=== PATIENT | male | born 1955 | race Caucasian/White ===

== ENCOUNTER → 2016-12-15 | Outpatient (CLI) | payer BC ==
[~2016-12-15] MED LIST: ASPI1TAB83 PO; CHOL100010 PO; CYAN500S5 PO; OMEG10007 PO; ONDA4TAB10 SL; OXYC1TAB3 PO; PRLSR20 PO; TAMS0.4C38 PO
--- NOTE | 2016-12-15 08:10 | DIAGNOSTIC IMAGING REPORT ---
KUB CLINICAL HISTORY: N20.0 [id number] COMPARISON STUDY: 12/27/2015 FINDINGS: There is no evidence of pathologic bowel dilatation. There are clustered lower pole left renal calcifications, the largest which measures 3 mm. The findings are consistent with renal calculi. Pelvic basin calcifications likely represent phleboliths. Degenerative changes are present within the spine. IMPRESSION: Left-sided nephrolithiasis. Increasing stone burden when compared the prior December 2015 study. Electronically signed by: Emigdio Chi M.D. 12/15/2016 8:08 AM Dictated Date/Time: 12/15/2016 8:07 AM
== END | disposition home or self-care (01) ==
LOC: C.RAD 07:47
PROVIDERS: ATTEND Urology
DX: N20.0 Calculus of kidney (principal)

== ENCOUNTER → 2016-12-28 | Outpatient (CLI) | payer BC ==
--- NOTE | 2017-01-04 12:34 | CODING QUERY MEDICAL NECESSITY ---
CQSUPPORTING DIAGNOSIS NEEDED A supporting diagnosis is required for the test/procedure performed on this patient in order for us to be reimbursed by the patient's insurance. Please provide a supporting diagnosis for the following test/procedure listed below next to the test name along with your signature. *If there is no additional diagnosis for this patient that would support the following test/procedure please document that below next to the test/procedure. Test(s)/Procedure(s) that require a supporting diagnosis: DOS 12/28/16 PROSTATE SPECIFIC TEST Provider Signature: Date: Thank you Katie Osei [employer] ([email or web address]) Information Management Once completed, please kindly fax back to [phone] For questions please call [phone]
== END | disposition home or self-care (01) ==
LOC: C.LAB1850 08:03
PROVIDERS: ATTEND Urology
DX: N20.0 Calculus of kidney (principal); Z11.59 Encounter for screening for other viral diseases; N40.1 Benign prostatic hyperplasia with lower urinary tract symptoms

== ENCOUNTER 2017-01-08 08:34 | Emergency (ER) | payer BC ==
[~2017-01-08] VITALS: Ht 182.9 cm; Wt 123.4 kg
[~2017-01-08 08:34] MED LIST changes: -ONDA4TAB10 SL; -OXYC1TAB3 PO; -TAMS0.4C38 PO
[2017-01-08 08:39] VITALS: TEMP 36.5; Ht 182.9 cm; Wt 123.4 kg
[2017-01-08] MEDS ORDERED: KETOROLAC TROMETHAMINE 30 MG/ML VIAL IV STA (08:52)
[2017-01-08] MEDS ORDERED: SODIUM CHLORIDE 0.9% 1000ML 1,000 ML IV STA (08:52)
[2017-01-08] MEDS ORDERED: MoRPHine SULFATE 10 MG/ML CARP/VIAL IV STA (08:52)
[2017-01-08] MEDS ORDERED: ONDANSETRON INJ 2 MG/ML 2 ML VIAL IV STA (08:52)
[2017-01-08] MEDS ORDERED: TAMSULOSIN HCL 0.4 MG CAP PO ONE (09:00)
[2017-01-08] MEDS ORDERED: MoRPHine SULFATE 2 MG/ML CARP ONE (09:02)
[2017-01-08] MEDS ORDERED: MoRPHine SULFATE 4 MG/ML 1 ML CARP\\VIAL ONE (09:03)
[2017-01-08 09:08] LABS: BASO ABS # 0.04 K/uL (0-0.2); COMPLETE YES; EOS % 2.3 %; HEMATOCRIT 44.8 % (42-52); IG% 0.8 %; LYMPH % 34.6 %; LYMPH ABS # 1.38 K/uL (1.2-3.4); MEAN CELL VOLUME 91.2 fL (80-100); MEAN CORPUSCULAR HEMOGLOBIN 31.8 pg (25-34); MEAN CORPUSCULAR HGB CONC 34.8 g/dl (32-36); MEAN PLATELET VOLUME 9.1 fL (7.4-10.4); MONO % 6.8 %; NEUT % 54.5 %; PLATELET COUNT 145 K/uL (130-400); RED BLOOD COUNT 4.91 M/uL (4.7-6.1); WHITE BLOOD COUNT 3.99 K/uL (4.8-10.8)
[2017-01-08 09:13] LABS: URINE APPEARANCE CLEAR (CLEAR); URINE BILIRUBIN NEG (NEG); URINE COLOR YELLOW; URINE NITRITE NEG (NEG); URINE SPECIFIC GRAVITY 1.022 (1.000-1.030); UROBILINOGEN NEG (NEG); ZZUR CULT IF INDIC CLEAN CATCH YES
[2017-01-08 09:20] LABS: MANUAL MICROSCOPIC REQUIRED? NO; REVIEW REQ? NO
[2017-01-08 09:29] LABS: BUN/CREATININE RATIO 15.1 (10-20); CREATININE 1.1 mg/dl (0.60-1.40); POTASSIUM 3.7 mmol/L (3.5-5.1)
[2017-01-08 09:34] LABS: CALCIUM 9.6 mg/dl (8.5-10.1)
--- NOTE | 2017-01-08 09:49 | DIAGNOSTIC IMAGING REPORT ---
CT SCAN OF THE ABDOMEN AND PELVIS WITHOUT CONTRAST CLINICAL HISTORY: hematuria, right lower quadrant pain COMPARISON STUDY: 11/28/2012 TECHNIQUE: CT scan of the abdomen and pelvis was performed from the lung bases to the proximal femurs. Images are reviewed in the axial, sagittal, and coronal planes. IV contrast was not administered for this examination. CT DOSE: 1066.20 mGycm FINDINGS: Lower chest: There are minor bibasilar atelectatic changes. Liver: There is hepatic steatosis. There is presumed focal fatty sparing adjacent to the gallbladder fossa. Gallbladder: Unremarkable. Spleen: Normal in size and attenuation. Pancreas: Unremarkable. Adrenal glands: Unremarkable. Kidneys: There is a nonobstructing 5 mm lower pole left renal calculus. There is a 2 mm distal right ureteral calculus at the level of the ureterovesical junction with mild secondary obstructive changes. Bowel: There are no transition zones to indicate bowel obstruction. There is colonic diverticulosis. There are no acute peridiverticular inflammatory changes. There is no evidence of acute appendicitis. Peritoneum: There is no intraperitoneal free air or abdominal ascites. There is a small fat-containing left inguinal hernia. Vasculature: The abdominal aorta is normal in course and caliber. Adenopathy: None. Pelvic viscera: The bladder, and pelvic viscera are unremarkable. Skeletal structures: No destructive osseous lesions are seen. IMPRESSION: 1. 2 mm calculus at the level of the right ureterovesical junction with mild secondary obstructive changes 2. Left-sided nephrolithiasis 3. Hepatic steatosis 4. No evidence of bowel obstruction. No evidence of free air. Electronically signed by: Emigdio Chi M.D. 01/08/2017 9:47 AM Dictated Date/Time: 01/08/2017 9:43 AM
[2017-01-08] MEDS ORDERED: TAMS0.4C38 PO (10:16)
[2017-01-08] MEDS ORDERED: OXYC1TAB3 PO (10:16)
[2017-01-08] MEDS ORDERED: ONDA4TAB10 SL (10:16)
--- NOTE | 2017-01-08 10:17 | EMERGENCY ROOM VISIT NOTE ---
History First contact with patient: 08:45 Chief Complaint: ABDOMINAL PAIN Stated Complaint: LOWER ABDOMINAL PAIN Nursing Triage Summary: Triage note: pt reports right lower abd pain since 0600 today. pt reports nausea. pt reports urinary frequency since yesterday. pt reports hx of diverticulitis. History of Present Illness The patient is a 61 year old male who presents to the Emergency Room with complaints of right lower abdominal pain since 6:00 this morning. The patient describes the pain as sharp in nature. He denies any back pain. The patient does admit to nausea but denies any vomiting. The patient denies any change in bowel habits or any hematochezia or melena. The patient does admit to increased urinary frequency since yesterday but denies any dysuria, hematuria or urgency. The patient denies any fever. The patient has a history of kidney stones as well as diverticulitis. The patient has seen Dr. Mayorga in the past for his kidney stones. He has had lithotripsy in the past. Review of Systems 10 system review was performed and was negative unless stated otherwise history of present illness. Past Medical/Surgical History Diverticulitis, kidney stones Social History Smoking Status: Never Smoker Alcohol Use: occasionally Drug Use: none Marital Status: Housing Status: lives with family Occupation Status: employed Current/Historical Medications Scheduled Aspirin (Aspirin), 81 MG PO DAILY Fish Oil ([place]-3), 1 CAP PO QAM Omeprazole (Prilosec), 20 MG PO QAM Allergies Coded Allergies: No Known Allergies (Verified , 01/08/17) Physical Exam Vital Signs Date Time Temp Pulse Resp B/P Pulse Ox O2 Delivery O2 Flow Rate FiO2 01/08/17 09:45 82 17 159/79 97 Room Air 01/08/17 08:39 36.5 95 20 169/90 96 Room Air Physical Exam GENERAL: Obese 61-year-old white male appears uncomfortable secondary to abdominal pain. MENTAL Status: Alert and oriented 3. MOUTH: Mucosa is moist. NECK: Supple, no lymphadenopathy noted. No carotid bruits noted. LUNGS: Clear auscultation without wheezes rales or rhonchi. CARDIAC: Regular rate and rhythm without murmur. Pulses is full and equal throughout. BACK: No CVA tenderness noted. ABDOMEN: Positive bowel sounds all 4 quadrants. Protuberant difficult to evaluate for organomegaly or masses. The patient has point tenderness to palpation in the right lower quadrant but no rebound or rigidity. Positive bowel sounds all 4 quadrants. EXTREMITIES: No cyanosis or edema noted. Medical Decision & Procedures ER Provider Diagnostic Interpretation: CT SCAN OF THE ABDOMEN AND PELVIS WITHOUT CONTRAST CLINICAL HISTORY: hematuria, right lower quadrant pain COMPARISON STUDY: 11/28/2012 TECHNIQUE: CT scan of the abdomen and pelvis was performed from the lung bases to the proximal femurs. Images are reviewed in the axial, sagittal, and coronal planes. IV contrast was not administered for this examination. CT DOSE: 1066.20 mGycm FINDINGS: Lower chest: There are minor bibasilar atelectatic changes. Liver: There is hepatic steatosis. There is presumed focal fatty sparing adjacent to the gallbladder fossa. Gallbladder: Unremarkable. Spleen: Normal in size and attenuation. Pancreas: Unremarkable. Adrenal glands: Unremarkable. Kidneys: There is a nonobstructing 5 mm lower pole left renal calculus. There is a 2 mm distal right ureteral calculus at the level of the ureterovesical junction with mild secondary obstructive changes. Bowel: There are no transition zones to indicate bowel obstruction. There is colonic diverticulosis. There are no acute peridiverticular inflammatory changes. There is no evidence of acute appendicitis. Peritoneum: There is no intraperitoneal free air or abdominal ascites. There is a small fat-containing left inguinal hernia. Vasculature: The abdominal aorta is normal in course and caliber. Adenopathy: None. Pelvic viscera: The bladder, and pelvic viscera are unremarkable. Skeletal structures: No destructive osseous lesions are seen. IMPRESSION: 1. 2 mm calculus at the level of the right ureterovesical junction with mild secondary obstructive changes 2. Left-sided nephrolithiasis 3. Hepatic steatosis 4. No evidence of bowel obstruction. No evidence of free air. Electronically signed by: Emigdio Chi M.D. 01/08/2017 9:47 AM Dictated Date/Time: 01/08/2017 9:43 AM Laboratory Results 01/08/17 08:54 Red Blood Count 4.91, Mean Corpuscular Volume 91.2, Mean Corpuscular Hemoglobin 31.8, Mean Corpuscular Hemoglobin Concent 34.8, Mean Platelet Volume 9.1, Neutrophils (%) (Auto) 54.5, Lymphocytes (%) (Auto) 34.6, Monocytes (%) (Auto) 6.8, Eosinophils (%) (Auto) 2.3, Basophils (%) (Auto) 1.0, Neutrophils # (Auto) 2.18, Lymphocytes # (Auto) 1.38, Monocytes # (Auto) 0.27, Eosinophils # (Auto) 0.09, Basophils # (Auto) 0.04 01/08/17 08:54 Test 01/08/17 08:45 01/08/17 08:54 Urine Color YELLOW Urine Appearance CLEAR (CLEAR) Urine pH 5.0 (4.5-7.5) Urine Specific [place] 1.022 (1.000-1.030) Urine Protein NEG (NEG) Urine Glucose (UA) NEG (NEG) Urine Ketones NEG (NEG) Urine Occult Blood 3+ (NEG) Urine Nitrite NEG (NEG) Urine Bilirubin NEG (NEG) Urine Urobilinogen NEG (NEG) Urine Leukocyte Esterase SMALL (NEG) Urine WBC (Auto) 10-30 /hpf (0-5) Urine RBC (Auto) 10-30 /hpf (0-4) Urine Hyaline Casts (Auto) 1-5 /lpf (0-5) Urine Epithelial Cells (Auto) 10-20 /lpf (0-5) Urine Bacteria (Auto) NEG (NEG) White Blood Count 3.99 K/uL (4.8-10.8) Red Blood Count 4.91 M/uL (4.7-6.1) Hemoglobin 15.6 g/dL (14.0-18.0) Hematocrit 44.8 % (42-52) Mean Corpuscular Volume 91.2 fL (80-100) Mean Corpuscular Hemoglobin 31.8 pg (25-34) Mean Corpuscular Hemoglobin Concent 34.8 g/dl (32-36) Platelet Count 145 K/uL (130-400) Mean Platelet Volume 9.1 fL (7.4-10.4) Neutrophils (%) (Auto) 54.5 % Lymphocytes (%) (Auto) 34.6 % Monocytes (%) (Auto) 6.8 % Eosinophils (%) (Auto) 2.3 % Basophils (%) (Auto) 1.0 % Neutrophils # (Auto) 2.18 K/uL (1.4-6.5) Lymphocytes # (Auto) 1.38 K/uL (1.2-3.4) Monocytes # (Auto) 0.27 K/uL (0.11-0.59) Eosinophils # (Auto) 0.09 K/uL (0-0.5) Basophils # (Auto) 0.04 K/uL (0-0.2) RDW Standard Deviation 43.0 fL (36.4-46.3) RDW Coefficient of Variation 12.9 % (11.5-14.5) Immature Granulocyte % (Auto) 0.8 % Immature Granulocyte # (Auto) 0.03 K/uL (0.00-0.02) Anion Gap 9.0 mmol/L (3-11) Est Creatinine Clear Calc Drug Dose 95.7 ml/min Estimated GFR () 83.5 Estimated GFR (Non- 72.1 BUN/Creatinine Ratio 15.1 (10-20) Calcium Level 9.6 mg/dl (8.5-10.1) Total Bilirubin 0.7 mg/dl (0.2-1) Direct Bilirubin 0.2 mg/dl (0-0.2) Aspartate Amino Transf (AST/SGOT) 31 U/L (15-37) Alanine Aminotransferase (ALT/SGPT) 59 U/L (12-78) Alkaline Phosphatase 90 U/L (45-117) Total Protein 7.5 gm/dl (6.4-8.2) Albumin 3.9 gm/dl (3.4-5.0) Lipase 118 U/L (73-393) Medications Administered Medications (Trade) Dose Ordered Sig/Miguel Route Start Time Stop Time Status Last Admin Dose Admin Sodium Chloride (Nss 1000ml) 1,000 ml @ 999 mls/hr Q1H1M STAT IV 01/08/17 08:52 01/08/17 09:52 DC 01/08/17 08:59 999 MLS/HR Ketorolac Tromethamine (Toradol Inj) 30 mg NOW STAT IV 01/08/17 08:52 01/08/17 08:54 DC 01/08/17 09:01 30 MG Ondansetron HCl (Zofran Inj) 4 mg NOW STAT IV 01/08/17 08:52 01/08/17 08:54 DC 01/08/17 09:00 4 MG Tamsulosin HCl (Flomax Cap) 0.4 mg NOW ONCE PO 01/08/17 09:00 01/08/17 09:01 DC 01/08/17 08:59 0.4 MG Morphine Sulfate (MoRPHine SULFATE INJ) 2 mg STK-MED ONCE .ROUTE 01/08/17 09:02 01/08/17 09:03 DC 01/08/17 09:03 2 MG Morphine Sulfate (MoRPHine SULFATE INJ) 4 mg STK-MED ONCE .ROUTE 01/08/17 09:03 01/08/17 09:04 DC 01/08/17 09:04 4 MG ED Course The patient was evaluated. IV access was obtained. The patient was given 1 L normal saline wide-open. The patient was given Toradol 30 mg IV, morphine 6 mg IV, Zofran 4 mg IV push and Flomax 0.4 mg by mouth. Urine dip revealed positive blood and positive leukocytes. Urinalysis and culture are pending. CBC and differential, renal profile, LFTs and lipase levels were ordered. CT stone study was ordered and interpreted by the radiologist as above with a 2 mm right distal stone at the UV junction. Labs are reviewed and were unremarkable. The patient's urinalysis revealed positive blood but no bacteria. Urine will be sent for culture. The patient was informed of the findings. He was reevaluated was feeling much better. The patient was discharged home in stable condition with his driving. Medical Decision Differential diagnoses include reflux, gastritis, gastroenteritis, pancreatitis , cholelithiasis, cholecystitis, appendicitis, mesenteric ischemia, pyelonephritis, urinary tract infection, renal colic, diverticulitis, shingles, bowel obstruction, intussusception, hernia, I'm a differential included acute appendicitis, diverticulitis or ureteral calculi. Due to the patient having blood in his urine I opted to get a CT stone study. Impression Primary Impression: Right ureteral calculus Departure Information Dispostion Home / Self-Care Condition GOOD Prescriptions Oxycodone Immediate Rel Tab (ROXICODONE IR) 5 Mg Tab 1-2 TAB PO Q4H Y for Pain, #24 TAB Prov: Kyra Miner PA-C 01/08/17 Ondasetron Odt (ZOFRAN ODT) 4 Mg Tab 4 MG SL Q6H for Nausea, #10 TAB Prov: Kyra Miner PA-C 01/08/17 Tamsulosin Hcl (FLOMAX) 0.4 Mg Cap 0.4 MG PO DAILY for 7 Days, #7 CAP Prov: Kyra Miner PA-C 01/08/17 Referrals Tono Holloway M.D. (PCP) Forms HOME CARE DOCUMENTATION FORM, IMPORTANT VISIT INFORMATION Patient Instructions Kidney Stones - [facility], [facility] Additional Instructions Push fluids. Strain all urine. Ibuprofen 600 mg every 6 hours with food for pain. Take OxyIR for more severe pain. Do not drive while taking the OxyIR. Take Zofran as needed for nausea. Take Flomax as directed. If you have any severe abdominal pain, uncontrolled nausea vomiting, fever return to ER. If you do not pass a stone in one to 2 weeks, recommend follow-up with Dr. Mayorga.
[2017-01-08 10:27] VITALS: BP 159/79; PULSE 82; O2SAT 97
== END 2017-01-08 10:30 | disposition home or self-care (01) ==
LOC: C.EDB 08:35 → C.EDC 10:30
DX: N20.1 Calculus of ureter (principal); Z79.82 Long term (current) use of aspirin; Z79.899 Other long term (current) drug therapy

== ENCOUNTER → 2017-01-19 | Outpatient (CLI) | payer BC ==
[~2017-01-19] MED LIST changes: -CHOL100010 PO; -CYAN500S5 PO; +ONDA4TAB10 SL; +OXYC1TAB3 PO
--- NOTE | 2017-01-19 08:23 | DIAGNOSTIC IMAGING REPORT ---
KUB CLINICAL HISTORY: N20.0 [id number] nephrocalcinosis COMPARISON STUDY: 12/15/2016 FINDINGS: Unchanging lower pole left lower pole renal nephrocalcinosis. No significant paravertebral calcifications. Bowel pattern is nonobstructive. Possible unchanging distal right ureteral calculus. IMPRESSION: Nephrocalcinosis unchanged from the prior study. Nonobstructive bowel pattern. Probable unchanging distal right ureteral calculus. Electronically signed by: Bairon Miner M.D. 01/19/2017 8:22 AM Dictated Date/Time: 01/19/2017 8:20 AM
== END | disposition home or self-care (01) ==
LOC: C.RAD 08:05
PROVIDERS: ATTEND Nurse Practitioner Adult Health
DX: N20.0 Calculus of kidney (principal)

== ENCOUNTER → 2017-12-01 | Outpatient (CLI) | payer BC, OTHER ==
[~2017-12-01] MED LIST changes: -ONDA4TAB10 SL; -OXYC1TAB3 PO
--- NOTE | 2017-12-01 16:17 | DIAGNOSTIC IMAGING REPORT ---
KUB CLINICAL HISTORY: Nephrolithiasis. COMPARISON STUDY: CT of the abdomen and pelvis January 08, 2017 and KUB January 19, 2017. FINDINGS: An 8 mm calculus within lower pole of the left kidney has slightly increased in size since prior exam. There is an adjacent smaller calculus. No ureteral calculi are identified. Pelvic calcifications reflect phleboliths. Bowel gas pattern is normal. IMPRESSION: 1. Left-sided nephrolithiasis with mild increase in size of an 8 mm lower pole calculus. 2. No ureteral calculi. Electronically signed by: Rohan Macedo M.D. 12/01/2017 4:16 PM Dictated Date/Time: 12/01/2017 4:14 PM
== END | disposition home or self-care (01) ==
LOC: C.RAD 15:24
PROVIDERS: ATTEND Urology
DX: N40.1 Benign prostatic hyperplasia with lower urinary tract symptoms (principal); N20.0 Calculus of kidney

== ENCOUNTER → 2018-02-09 | Outpatient (CLI) | payer OTHER ==
[2018-02-09 09:56] LABS: ALBUMIN 3.3 gm/dl (3.4-5.0); ALKALINE PHOSPHATASE 83 U/L (45-117); ALT/SGPT 44 U/L (12-78); AST/SGOT 22 U/L (15-37); BLOOD UREA NITROGEN 18 mg/dl (7-18); CALCIUM 8.6 mg/dl (8.5-10.1); CARBON DIOXIDE 27 mmol/L (21-32); CHOLESTEROL 181 mg/dl (0-200); CREATININE 0.85 mg/dl (0.60-1.40); GLUCOSE 112 mg/dl (70-99); LDL CHOLESTEROL CALCULATED 105 mg/dl; LIPASE 109 U/L (73-393); POTASSIUM 3.7 mmol/L (3.5-5.1); SODIUM 142 mmol/L (136-145)
[2018-02-09 10:09] LABS: HEMOGLOBIN A1C 5.4 % (4.5-5.6)
== END | disposition home or self-care (01) ==
LOC: C.LAB1850 07:18
PROVIDERS: ATTEND Physician Assistant Medical
DX: Z00.00 Encounter for general adult medical examination without abnormal findings (principal); R19.7 Diarrhea, unspecified; G47.33 Obstructive sleep apnea (adult) (pediatric); I89.0 Lymphedema, not elsewhere classified; E55.9 Vitamin D deficiency, unspecified; R73.01 Impaired fasting glucose